=== PATIENT | female | born 1955 | race Caucasian/White ===

== ENCOUNTER 2019-10-11 04:38 | Inpatient (IN) | payer MEDICARE, MEDICAID, SELFPAY ==
[2019-10-11] VITALS (32 sets, daily range): BP systolic 78–144; BP diastolic 48–100; PULSE 84–108; RESP 18–37; TEMP 36.2–36.6; O2SAT 96–100; BMI 16.9
--- NOTE | 2019-10-11 | ECHO_ITS ---
Patient Info Name: Ana Shen Age: 64 years : 1955 Gender: Female Ht: 63 in Wt: 95 lbs BSA: 1.37 m2 HR: 90 bpm BP: 109 / 59 mmHg Heart Rhythm: Sinus Rhythm Technical Quality: Good Exam Date: 10/11/2019 1:36 PM Exam Location: [facility] Pulmonary Exam Room: 213 Patient Status: Inpatient Admit Date: 10/11/2019 Staff Ordering Physician: Dakota Guevara MD General Foreman: Jacquie Tom RCS Attending Provider: Jimi Garcia MD Referring Physician: Ismael CHASE; Exam Type: CA echo doppler color flow Study Info Indications - copd sob on BI PAP Complete two-dimensional, color flow and Doppler transthoracic echocardiogram is performed. Summary 1. Left ventricular chamber dimension is normal. 2. Left ventricular systolic function is mildly reduced, estimated at 40-45%. 3. The anteroapical, apical, apical inferior wall segments are akinetic. 4. There is a small round apical clot noted diameter measures 0.6 cm. Thrombus appears to be chronic. 5. There is mild aortic valve sclerosis. 6. Regional wall motion abnormalities as described above are typical of infarction of these segments. Left Ventricle Left ventricular chamber dimension is normal. Left ventricular systolic function is mildly reduced, estimated at 40-45%. The anteroapical, apical, apical inferior wall segments are akinetic. There is a small round apical clot noted diameter measures 0.6 cm. Thrombus appears to be chronic. Right Ventricle Right ventricular chamber dimension is normal. Left Atria Left atrial chamber dimension is normal. Right Atria Right atrial chamber dimension is normal. Aortic Valve The aortic valve is trileaflet. There is mild aortic valve sclerosis. Pulmonic Valve The pulmonic valve is not well visualized. Mitral Valve The mitral valve has normal leaflets. Tricuspid Valve The tricuspid valve leaflets are normal. Pericardium/Pleural The pericardium appears normal. Aorta The aortic root size at the sinus of Valsalva is normal. Left Ventricular Outflow Tract Name Value Normal LVOT 2D LVOT Diameter 2.0 cm LVOT Doppler LVOT Peak Gradient 3 mmHg LVOT Mean Gradient 2 mmHg LVOT VTI 16 cm LVOT VTI/AV VTI Ratio 0.9 LVOT Stroke Volume 51 ml LVOT CO 11.4 l/min LVOT CI 8.3 l/min/m2 Pulmonic Valve Name Value Normal PV Doppler PV Peak Gradient 2 mmHg Mitral Valve Name Value Normal MV Doppler
--- NOTE | ~2019-10-11 | CT_ITS ---
EXAMINATION: CTA chest PE protocol EXAM DATE: 10/11/2019 15:04 INDICATION: Elevated d-dimer. TECHNIQUE: Spiral CTA of the chest (pulmonary arteries) was performed with 100 cc Omnipaque 350 intr avenous contrast injection. Images were acquired during the pulmonary arterial phase. Coronal maxi mum intensity projection 3D-reconstructions were created by the technologist on dedicated workstation . Axial, coronal and sagittal reformatted images were reviewed. The dose-length product (DLP) for t his examination was 147.90 mGy-cm. The exposure was tailored according to patient size (auto mA exp osure control), and iterative reconstruction (ASIR) was used as additional dose reduction technique. Comparison is made to prior examination from 12/09/2018. FINDINGS: Pulmonary arteries are well opacified and without intraluminal filling defects. There is s evere emphysema and hyperinflation. The main, central pulmonary arteries are dilated which can indica te elevated pulmonary arterial pressure, pulmonary arterial hypertension. No thoracic aortic dissec tion. The lungs are clear. There are no pleural or pericardial effusions. Tracheobronchial tree is patent. There is no mediastinal, hilar or axillary lymphadenopathy. There is no pneumothorax. Heart normal in size. There is mild coronary arterial calcification, arterial sclerosis. Upper a bdomen is unremarkable. There is thoracic spondylosis without osteoblastic or osteolytic lesions id entified. Stimulator pack. IMPRESSION: 1. No pulmonary emboli. 2. Severe emphysema and hyperinflation. Reviewed, dictated and finalized at location B.
--- NOTE | ~2019-10-11 | XR_ITS ---
EXAMINATION: XR chest 1V portable DATE: 10/11/2019 05:56 INDICATION: Hypoxemia. Chronic obstructive pulmonary disease exacerbation. TECHNIQUE: A single frontal view of the chest was obtained on 2 radiographs. COMPARISON: Chest 2 views 05/28/2018, chest CT 12/09/2018 FINDINGS: The lungs are hyperexpanded with lucencies, consistent with emphysema. No pleural effusion or pneumothorax. The heart size is normal. IMPRESSION: 1. Severe emphysema. Reviewed, dictated and finalized at location A. IMPRESSION: 1. Severe emphysema.
--- NOTE | 2019-10-11 04:23 | ED.SOB ---
HPI - SOB/Dyspnea General Chief Complaint: Shortness of Breath/Dyspnea Stated Complaint: sob Source: patient and EMS Mode of arrival: EMS Limitations: no limitations History of Present Illness HPI Narrative: The patient is a 64-year-old female with a history of COPD, chronic respiratory failure on 3 L home oxygen who presents for evaluation of shortness of breath. Patient reportedly called EMS early this morning for worsening shortness of breath despite trying to use DuoNeb treatments at home. When EMS arrived to the patient's residence, she was hypoxemic, fatigued appearing. Patient was given a IV fluids, DuoNeb treatment, magnesium, Decadron, placed on CPAP and had very rapid turnaround in her dyspnea. Patient was transported to our facility on CPAP at 10/. At the time of my assessment, patient is awake, alert, with improved work of breathing. She is still tachypneic, with subtle expiratory wheezing, although aeration is poor bilaterally. Patient is denying any chest pain, reporting only worsening shortness of breath this morning. Patient denies history of previous intubation, states her last hospitalization was 2 years ago. Related Data Home Medications Medication Instructions Recorded Confirmed arformoterol 15 mcg/2 mL solution 2 ml INHALATION DAILY 03/23/19 09/07/19 for nebulization budesonide 0.25 mg/2 mL suspension 2 ml INHALATION BID 03/23/19 09/07/19 for nebulization ipratropium 0.5 mg-albuterol 3 mg 3 ml INHALATION QID PRN 03/23/19 09/07/19 (2.5 mg base)/3 mL nebulization soln ipratropium 20 mcg-albuterol 100 1 puff INHALATION QID 03/23/19 09/07/19 mcg/actuation mist for inhalation loperamide 2 mg capsule 2 mg PO Q4H PRN 03/23/19 09/07/19 pseudoephedrine-guaifenesin ER 60 1 tablet PO BID PRN 03/23/19 09/07/19 mg-600 mg tablet,extend release 12hr ipratropium-albuterol [Combivent INHALATION 10/11/19 Respimat] Allergies Allergy/AdvReac Type Severity Reaction Status Date / Time No Known Allergies Allergy Verified 10/11/19 04:47 Review of Systems Review of Systems: Narrative: CONSTITUTIONAL: Denies fever ENT: Denies rhinorrhea, congestion, sore throat, or otalgia. CARDIOVASCULAR: Denies chest pain RESPIRATORY: Reports cough and shortness of breath GASTROINTESTINAL: Denies abdominal pain MUSCULOSKELETAL: Denies back pain NEUROLOGIC: Denies headache [facility] Past Medical History Medical History Cervical cancer Chronic hypoxemic respiratory failure Fusion of lumbar spine History of tobacco abuse Pulmonary hypertension Shortness of Breath Social History Social History (Updated 10/11/19 @ 04:47 by Katalina Son MD) Smoking status: Current every day smoker Tobacco type: cigarettes Smoking end date: 02/25/16 Alcohol intake: never Exam Narrative: Exam Narrative: GENERAL: Awake, alert, cachectic HEAD: Normocephalic, atraumatic. EYES: PERRLA and EOMI. ENT: Nares clear, no rhinorrhea or epistaxis. Mucous membranes dry. NECK: Supple. CHEST: Severe respiratory distress, on CPAP, tachypneic, use of accessory muscles to breathe, poor aeration bilaterally HEART: Tachycardic rate, sinus rhythm ABDOMEN: Scaphoid, non distended, non tender EXTREMITIES: Normal range of motion. No edema. SKIN: Pale, warm, dry, no rash. NEURO:No focal deficits. Alert and oriented x3 Course Vital Signs Vital signs: Vital Signs Temperature 36.4 C 10/11/19 04:33 Pulse Rate 108 H 10/11/19 04:33 Respiratory Rate 36 H 10/11/19 04:33 Blood Pressure 144/69 H 10/11/19 04:33 Pulse Oximetry 100 10/11/19 04:33 Temperature 36.4 C 10/11/19 04:33 Pulse Rate 102 H 10/11/19 05:36 Respiratory Rate 20 10/11/19 05:29 Blood Pressure 130/100 H 10/11/19 05:29 Pulse Oximetry 100 10/11/19 05:29 MDM - SOB/Dyspnea MDM Narrative Medical decision making narrative: Patient presented for evaluation of shortness of breath via EMS.
--- NOTE | 2019-10-11 04:44 | ECG_ITS ---
Measurements Intervals [place] Rate: 107 P: 88 CO: 147 QRS: 150 QRSD: 88 T: 75 QT: 303 QTc: 405 Interpretive Statements SINUS TACHYCARDIA POSSIBLE LEFT ATRIAL ENLARGEMENT BORDERLINE R WAVE PROGRESSION, ANTERIOR LEADS ST ELEVATION IN ANTERIOR LEADS- CONSDER ACUTE INJURY BASELINE ARTIFACT- I, II, AVR, AVL, AVF, V1-V2, V4-V6 ABNORMAL ECG Electronically Signed On 10-11-2019 7:08:18 CDT by Bunny Davis D.O.
[2019-10-11] MEDS: methylPREDNISolone SOD SUCC 125 MG VIAL IV PUSH (04:51)
[2019-10-11 05:00] LABS: Base Excess ABG 1.8 mEq/l (+/-2.0); Carboxyhemoglobin 1.3 % THb (0-2.0); Fractional Inspired Oxygen 40 %; Methemoglobin ABG 0.4 %THb (0-1.5); Oxyhemoglobin 61.1 % THb (90.0-100.0); PCO2 ABG 57.4 mmHg (35.0-45.0); PO2 FiO2 Ratio Arterial Blood 0.95 %; Reduced Hemoglobin 37.2 %THb (0-5.0); Total Hemoglobin 12.9 g/dL (12.0-18.0); pH ABG 7.322 (7.350-7.450)
[2019-10-11 05:03] LABS: Oxygen Saturation ABG 66.6 % (95.0-100.0)
--- NOTE | 2019-10-11 05:03 | PC.NURSE ---
Patient's bedside glucose was 150.
[2019-10-11 05:04] LABS: Glucose Point of Care 150 (65-105)
[2019-10-11 05:05] LABS: Device NON-INVASIVE VENT; Site Drawn RIGHT BRACHIAL
[2019-10-11 05:06] LABS: Non-Invasive Expiratory Pressure 6 CMH2O; Non-Invasive Inspiratory Pressure 12 CMH2O; Non-Invasive Vent Rate 8 /MIN
--- NOTE | 2019-10-11 05:12 | PCRCNOTE ---
pt refused abg so ran venous sampledr cielo ochoa
[2019-10-11 05:16] LABS: Basophils Percent Auto 0.5 % (0.2-1.2); Eosinophils Absolute Auto 0.1 K/mm3 (0-0.3); Eosinophils Percent Auto 2.2 % (0-4.4); Hematocrit 36.1 % (37.0-47.0); Hemoglobin 11.9 g/dL (12.0-15.0); Immature Granulocyte Absolute 0.04 K/mm3 (0.00-0.031); Immature Granulocyte Percent A 0.7 % (0-0.5); Lymphocytes Absolute Auto 0.93 K/mm3 (0.9-3.2); Lymphocytes Percent Auto 16.8 % (18.3-44.2); Mean Corpuscular Hemoglobin 30.1 pg (26-34); Mean Corpuscular Volume 91.4 fl (80-100); Mean Platelet Volume 10.1 fl (7.4-10.4); Monocytes Absolute Auto 0.3 K/mm3 (0.1-0.6); Monocytes Percent Auto 4.7 % (2.6-8.5); Neutrophils Absolute Auto 4.2 K/mm3 (1.3-6.7); Neutrophils Percent Auto 75.1 % (45.5-73.1); Platelet Count Result 175 k/mm3 (150-375); Red Blood Count 3.95 M/mm3 (4.2-5.4); Red Cell Distribution Width 13.8 % (11.5-14.5); White Blood Count 5.5 K/mm3 (4.5-10.0)
[2019-10-11 05:26] LABS: Anion Gap 5 mmol/L (8-16); Blood Urea Nitrogen 12 mg/dL (7-17); Calcium 8.3 mg/dL (8.4-10.2); Carbon Dioxide 29 mmol/L (22-30); Chloride 102 mmol/L (98-107); Estimated Glomerular Filt Rate > 60; Glucose 162 mg/dL (65-105); Lactic Acid Reflex 1.5 mmol/L (0.7-2.1); Potassium 4.2 mmol/L (3.4-5.0); Sodium 136 mmol/L (137-145)
[2019-10-11] MEDS: IPRATROPIUM BR 0.02% INH SOLN 0.5 MG/2.5 ML VIAL INHALATION ×3 (06:25→20:07)
[2019-10-11] MEDS: ALBUTEROL SULFATE NEB 2.5 MG/0.5 ML INH 5 MG INHALATION ×3 (06:26→20:07)
--- NOTE | 2019-10-11 08:09 | ADMGEN ---
This patient, Ana Shen, was admitted to IMU Room 213-01 on 10-11-2019 at 0744. Patient/family oriented to hospital policies and general routines including ID bracelet, bed and alarms, visiting hours, pain management, procedures, bathroom and other care routines, personal items, smoking policy, room service/diet, and visiting hours. Valuables list has been completed. Information on how to activate the Rapid Response Team has been discussed. Patient/Family are encouraged to report perceived risks to care and to ask questions if they do not understand what they are told or what they should do.
--- NOTE | 2019-10-11 10:05 | PM.IMHP ---
H&P: HPI History of Present Illness Date/Time: 10/11/19 10:05 Chief complaint: Acute on chronic respiratory failure, COPD exacerb Narrative: Date of visit 929. Ana Shen is a 64 year old female with emphysematous COPD and chronic respiratory failure on 3-5 L nasal cannula who awoke this a.m. at approximately 4:00 a.m. more acutely short of breath. Contacted EMS did a breathing treatment without relief and was given steroids updrafts and transport to the hospital. Here she was more alert and no obvious precipitating factor found. She has had no productive cough fever chills or chest discomfort. She said she had a similar episode about 1 week ago early a.m. but by the time the ambulance arrived she did give herself a treatment was feeling somewhat better and did not come to the hospital. In the interim she has had no progression. She still smokes a few cigarettes a day and had been much heavier smoker in the past. last hospitalized here approximately 2 years ago and has done fairly well and generally uses some dry of updraft with her different inhalers approximately 3 hour intervals in very faithful in taking her medication Review of Systems Review of Systems: Narrative: constitutional appetite good weight is stable no fever no chills as stated Eye no double vision [place] mouth no pharyngitis laryngitis pulmonary as per present illness rare if any wheezing CV no chest pain palpitation or pedal edema GI no melena hematochezia diarrhea or constipation muscle skeletal no particular joint discomfort integument no skin breakdown rashes neuropsych alert pleasant cooperative no focal deficits PMFSH Past Medical History Medical History (Updated 10/11/19 @ 10:22 by Dakota Guevara MD) Cervical cancer Chronic hypoxemic respiratory failure Fusion of lumbar spine History of nephrolithiasis History of tobacco abuse Pulmonary hypertension Shortness of Breath Surgical History Surgical History (Updated 10/11/19 @ 10:17 by Dakota Guevara MD) S/P cervical spinal fusion C5 through C7 S/P lumbar fusion Status post colectomy with colostomy and subsequent reversal in 2011 for rectal cancer Status post hysterectomy Family History Family History (Updated 10/11/19 @ 10:18 by Dakota Guevara MD) Sibling Family history of lung cancer Suarez's sarcoma Hypertension Mother , diet in her 60s of cerebral aneurysm Cerebrovascular accident Hypertension Father , not sure exact age of demise was not close with her father Hypertension Heart disease Social History Social History (Updated 10/11/19 @ 10:19 by Dakota Guevara MD) Social History: lives with her son and does relate that she has had asbestos exposure in the past Smoking packs per day: 0.5 Smoking cigarettes per day: 10.0 Years smoked: 40 Smoking pack-years: 20.00 Smoking status: Current every day smoker Tobacco type: cigarettes Alcohol intake: never Substance use: never Spiritual care concerns: No Meds Home Medications and Allergies Home Medications Medication Instructions Recorded Confirmed Type arformoterol 15 mcg/2 mL solution 2 ml INHALATION DAILY 03/23/19 10/11/19 History for nebulization budesonide 0.25 mg/2 mL suspension 2 ml INHALATION BID 03/23/19 10/11/19 History for nebulization ipratropium 0.5 mg-albuterol 3 mg 3 ml INHALATION QID PRN 03/23/19 10/11/19 History (2.5 mg base)/3 mL nebulization soln loperamide 2 mg capsule 2 mg PO DIRECTED PRN 03/23/19 10/11/19 History guaifenesin 400 mg PO QID PRN 10/11/19 10/11/19 History ipratropium-albuterol [Combivent 1 puff INHALATION QID PRN 10/11/19 10/11/19 History Respimat] Allergies Allergy/AdvReac Type Severity Reaction Status Date / Time No Known Allergies Allergy Verified 10/11/19 08:18 Vital Signs Vital Signs - 24 hr 10/11/19 04:33 10/11/19 04:40 10/11/19 05:05 Temperature 36.4 C
[2019-10-11] MEDS: ENOXAPARIN 40 MG/0.4 ML SYRINGE SUB-Q (10:57)
[2019-10-11] MEDS: SODIUM CHLORIDE 0.9% IV 1,000 ML 100 ML IV CONT (10:57)
[2019-10-11 10:58] LABS: Alanine Aminotransferase 27 U/L (4-35); Albumin Level 3.7 g/dL (3.5-5.1); Alkaline Phosphatase 59 U/L (38-126); Aspartate Amino Transferase 36 U/L (14-36); Bilirubin,Total 0.4 mg/dL (0.2-1.3)
[2019-10-11 10:59] LABS: NT Pro B Type Natriuretic Pept 8310 PG/ML (5-100)
[2019-10-11 11:23] LABS: Alveolar/Arterial O2 Gradient 98.7 mmHg; Base Excess ABG 0.5 mEq/l (+/-2.0); Fractional Inspired Oxygen 40 %; HCO3 ABG 25.8 mEq/l (22.0-26.0); Oxygen Content ABG 17.5 %vol (16.0-22.0); Oxygen Saturation ABG 98.7 % (95.0-100.0); Oxyhemoglobin 97.4 % THb (90.0-100.0); PO2 ABG 135.9 mmHg (80.0-100.0); Total Hemoglobin 12.6 g/dL (12.0-18.0); pH ABG 7.386 (7.350-7.450)
[2019-10-11 11:25] LABS: Device BIPAP; Modified Allen's Test Pass; Site Drawn LEFT RADIAL
--- NOTE | 2019-10-11 11:25 | PCNSR ---
On 10/11/19, the student, Eric Stanton, provided care and [facility]. I have reviewed the student's documentation and agree with the findings.
[2019-10-11 11:26] LABS: Expiratory Pressure 6 cmH2O; Inspiratory Pressure 12 cmH2O
[2019-10-11] MEDS: LOPERAMIDE HCL 2 MG CAPSULE PO (12:09)
--- NOTE | 2019-10-11 12:24 | PM.CNPUL ---
Assessment and Plan Assessment and plan (1) Acute exacerbation of chronic obstructive airways disease: Code(s): J44.1 - Chronic obstructive pulmonary disease with (acute) exacerbation Status: Acute Assessment and Plan: She is having a COPD exacerbation, is at end stage of her disease process. She has increased shortness of breath, cough, sputum that has changed, is also increasing O2 due to shortness of breath, has been doing this a long time. Was seen in the office last month, not thriving. She has anxiety contributing to her overall distress. * Start Buspar 7.5 mg twice a day; she agreed to this * She is on maximum meds at home, has a specific schedule starting at 4:00 am that works for her, Brovana / budesonide at 4:00 am and other bronchodilators every 3 hours to have something to give all day long. * BNP is 8310, higher than expected. Echo is pending. She may have some cardiac dysfunction due to the pulmonary distress. No pulmonary edema on CXR. (2) Respiratory failure, [id number]: Qualifiers: Respiratory failure complication: hypoxia Qualified Code(s): J96.21 - Acute and chronic respiratory failure with hypoxia Code(s): J96.20 - Acute and chronic respiratory failure, unspecified whether with hypoxia or hypercapnia Status: Acute Assessment and Plan: She is on O2 at home for several years, uses more than needed. She does not have CO2 retention this visit; has had before. She was on BiPAP with adequate oxygenation and decreased work of breathing. (3) Pulmonary hypertension: Code(s): I27.20 - Pulmonary hypertension, unspecified Status: Acute Assessment and Plan: new echo is pending (4) Shortness of Breath: Code(s): R06.02 - Shortness of breath Status: Acute Assessment and Plan: worsening, due to progressive COPD and an exacerbation (5) Tobacco abuse: Code(s): Z72.0 - Tobacco use Status: Acute Assessment and Plan: Has 40 pack year history, quit a year ago, came with a pack of cigarettes. Her son still smokes; she is exposed to his smoke, she may not be smoking personally. Additional Plan She has end stage COPD, anxiety, will add Buspar, hold nebulized steroids while she is on systemic steroids. She is getting solumedrol 40 mg IV Q 8 hours. History of Present Illness History of Present Illness Consult date: 10/11/19 Requesting physician: Dakota Guevara MD Chief complaint: Acute on chronic respiratory failure, COPD exacerb Narrative: NEW: Thank you for the consult. Ana Shen is our clinic patient, 64 yo ap[pears much older than her age, admitted with increased shortness of breath, cough with development of green sputum which is normally white, worsening anxiety. She feels that she cannot take a deep enough breath in; she was in the office September 06 with similar issues, was in wheelchair, was not able to perform ADLs. She declined roflumilast (Daliresp) at a prior visit, and this may be a good add on medication now that she has had an admission for COPD. She is wearing 5 L/min with sat of 100%. Her home O2 amount at the last walk study was 1 L/min at rest, 3 L/min with exertion and sleep. She is having increased anxiety, feels that she is not enough getting enough O2, anxious, still smoking suspected as she has [place] pack here. Her son smokes outside so she has some exposure to second hand smoke. Denies fever, sore throat, exposure to anyone with COVID, no GI symptoms. She is on 4 different nebs at home - Brovana, budesonide, Duoneb, albuterol. Review of Systems Review of Systems: All systems re
[2019-10-11] MEDS: methylPREDNISolone SOD SUCC 40 MG VIAL IV PUSH ×2 (14:41→21:49)
[2019-10-11] MEDS: BUDESONIDE RESPULE NEB 0.5 MG/2 ML AMP 0.25 MG INHALATION (20:07)
[2019-10-11] MEDS: ENOXAPARIN 60 MG/0.6 ML SYRINGE 44 MG SUB-Q (21:49)
[2019-10-11] MEDS: busPIRone HCL 2.5 MG, busPIRone HCL 5 MG 7.5 MG PO (21:50)
[2019-10-12] VITALS (30 sets, daily range): BP systolic 88–116; BP diastolic 47–71; PULSE 78–104; RESP 19–37; TEMP 35.7–36.5; O2SAT 93–100
[2019-10-12] MEDS: ALBUTEROL SULFATE NEB 2.5 MG/0.5 ML INH 5 MG INHALATION ×4 (01:46→19:24)
[2019-10-12] MEDS: IPRATROPIUM BR 0.02% INH SOLN 0.5 MG/2.5 ML VIAL INHALATION ×4 (01:46→19:24)
[2019-10-12 05:40] LABS: Albumin Level 3.3 g/dL (3.5-5.1); Anion Gap 3 mmol/L (8-16); Blood Urea Nitrogen 17 mg/dL (7-17); Calcium 8.2 mg/dL (8.4-10.2); Carbon Dioxide 29 mmol/L (22-30); Chloride 102 mmol/L (98-107); Estimated CRCL calculation 48 ml/min; Estimated Glomerular Filt Rate > 60; Glucose 128 mg/dL (65-105); Phosphorus 3.7 mg/dL (2.5-4.5); Potassium 4.4 mmol/L (3.4-5.0); Sodium 134 mmol/L (137-145)
[2019-10-12] MEDS: methylPREDNISolone SOD SUCC 40 MG VIAL IV PUSH ×3 (06:53→21:06)
[2019-10-12] MEDS: BUDESONIDE RESPULE NEB 0.5 MG/2 ML AMP 0.25 MG INHALATION (08:38)
[2019-10-12] MEDS: busPIRone HCL 2.5 MG, busPIRone HCL 5 MG 7.5 MG PO ×2 (09:45→21:06)
[2019-10-12] MEDS: ENOXAPARIN 60 MG/0.6 ML SYRINGE 44 MG SUB-Q ×2 (09:46→21:07)
--- NOTE | 2019-10-12 12:12 | PM.PNPUL ---
Progress Note: A&P Assessment and Plan (1) Chronic hypoxemic respiratory failure: Code(s): J96.11 - Chronic respiratory failure with hypoxia Status: Acute (2) Acute exacerbation of chronic obstructive airways disease: Code(s): J44.1 - Chronic obstructive pulmonary disease with (acute) exacerbation Status: Acute Assessment and Plan: - increase pulmicort to 0.5 mg bid - agree with methylprednisolone 40 mg Q8h - Albuterol 2.5/Atrovent 0.5 mg Q6h scheduled - Recommend Cardiology Consult for abnormal wall motion function on Echo. ACS if present may be causing COPD exacerbation. - agree with no antibiotics at the moment. No signs acute bronchitis or pneumonia - Will need Trilogy NIV as outpatient. Time Spent With Patient Time with patient: 15 - 25 minutes Subjective Date/time seen: 10/12/19 12:12 Interval history: Feeling slightly better. Severe COPD. She's on Brovana/Ipratropium with PRN Albuterol Nebs. She's not on any pulmicort. Her Echo showed significant wall motion abnormalities with EF of 40-45%. No evidence of pneumonia. Sputum is the same and unchanged from home. No other infectious symptoms. Review of Systems Review of Systems: All systems reviewed & are unremarkable except as noted in HPI and below Exam Const: General: no acute distress and uncomfortable Other: some use of accessory muscles Neck: Neck: supple and no JVD Resp: Auscultation: no crackles, no rales, no rhonchi, no wheezes and diminished lung sounds Other: some use of accessory muscles Cardio: Rate: regular rate Rhythm: regular rhythm Heart sounds: no murmurs GI: Auscultation: normal bowel sounds Skin: General skin exam: normal color and no rashes or lesions noted Neuro: General: gait normal Speech: normal speech Extrem: General: normal to inspection, no edema and no pedal edema Psych: Mental Status: mental status grossly normal Affect: normal affect Objective Data Vital Signs Vital Signs: Vital Signs - 24 hr 10/11/19 12:32 10/11/19 13:44 10/11/19 13:50 Temperature 36.3 C L Pulse Rate 94 84 98 Respiratory Rate 28 H 26 H 26 H Blood Pressure 109/59 L Pulse Oximetry 100 96 10/11/19 13:54 10/11/19 14:00 10/11/19 16:00 Temperature Pulse Rate 84 90 88 Respiratory Rate 26 H Blood Pressure Pulse Oximetry 10/11/19 16:49 10/11/19 17:33 10/11/19 18:00 Temperature 36.2 C L Pulse Rate 86 102 H Respiratory Rate 18 Blood Pressure 78/48 L 95/67 L Pulse Oximetry 100 10/11/19 20:00 10/11/19 20:07 10/11/19 20:10 Temperature Pulse Rate 95 95 95 Respiratory Rate 25 H 25 H Blood Pressure Pulse Oximetry 98 10/11/19 20:20 10/11/19 20:45 10/11/19 22:00 Temperature 36.6 C Pulse Rate 95 104 H 101 H Respiratory Rate 27 H 26 H Blood Pressure 90/55 L Pulse Oximetry 99 10/11/19 23:43 10/12/19 00:00 10/12/19 01:46 Temperature 36.4 C Pulse Rate 87 88 82 Respiratory Rate 19 22 H 19 Blood Pressure 88/47 L Pulse Oximetry 99 99 10/12/19 01:52 10/12/19 01:56 10/12/19 02:00 Temperature Pulse Rate 84 78 81 Respiratory Rate 22 H 19 Blood Pressure Pulse Oximetry 93 10/12/19 04:00 10/12/19 06:00 10/12/19 08:25 Temperature 36.4 C 35.7 C L Pulse Rate 84 78 80 Respiratory Rate 22 H 32 H Blood Pressure 96/60 L 116/71 Pulse Oximetry 99 99 10/12/19 08:40 10/12/19 08:50 Temperature Pulse Rate 83 84 Respiratory Rate 20 20 Blood Pressure Pulse Oximetry 93 Intake/Output Intake/Output: Intake & Output 10/09/19 10/10/19 10/11/19 10/12/19 23:59 23:59 23:59 23:59 Intake Total 667 573 Output Total 700 400 Balance -33 173 Meds/Results Medications: Active Medications Generic Name Dose Route Start Last Admin Trade Name Freq PRN Reason Stop Dose Admin Acetaminophen 650 mg 10/11/19 06:10 Tylenol Tablet PO Q4H PRN Mild Pain (1-3) or Fever Albuterol 5 mg 10/11/19 08:00 10/12/19 08:38
[2019-10-12] MEDS: LOPERAMIDE HCL 2 MG CAPSULE PO (13:34)
--- NOTE | 2019-10-12 18:27 | PM.IMPN ---
Progress Note: A&P Assessment and Plan (1) Respiratory failure, [id number]: Qualifiers: Respiratory failure complication: hypoxia Qualified Code(s): J96.21 - Acute and chronic respiratory failure with hypoxia Code(s): J96.20 - Acute and chronic respiratory failure, unspecified whether with hypoxia or hypercapnia Status: Acute Assessment and Plan: Patient with an abrupt onset acute on chronic respiratory failure with hypoxia and hypercapnia. Does not appear to be in congestive failure but BNP 8300 and Echo showing EF 40% with LV dysfunction. D-dimer is elevated but could be related to the apical clot. CTA showing no PE but severe emphysema. She does have some dysphagia symptoms so also consider aspiration. Could also just be simply progression of her COPD toward end-stage. She states that she has been struggling with this for awhile and is tired. Hospice as an option was discussed. Consider trial of Lasix if she does not iimprove with current care. (2) Apical mural thrombus: Code(s): I51.3 - Intracardiac thrombosis, not elsewhere classified Status: Acute Assessment and Plan: Echo showing small round apical clot that appears to be chronic. Lovenox full dose started. Cardiology consult. (3) LV dysfunction: Code(s): I51.9 - Heart disease, unspecified Status: Acute Assessment and Plan: LV systolic function at 40-45% with anteroapical, apical, apical inferior wall segments that are akinetic. Would like to start BB and ACEI but BP soft yesterday bit improved today. Also, she is just now recovering from her respiratory failure. (4) Acute exacerbation of chronic obstructive airways disease: Code(s): J44.1 - Chronic obstructive pulmonary disease with (acute) exacerbation Status: Acute Assessment and Plan: Patient has severe emphysematous COPD with exacerbation. Continue updrafts and steroids. Continue inhalers. Add prn Albuterol. Appreciate pulmonary input. (5) Tobacco abuse: Code(s): Z72.0 - Tobacco use Status: Acute Assessment and Plan: Patient continues to smoke. Smoking cessation is imparative. (6) DVT prophylaxis: Code(s): Z29.9 - Encounter for prophylactic measures, unspecified Status: Acute Assessment and Plan: Lovenox (7) Anxiety: Code(s): F41.9 - Anxiety disorder, unspecified Status: Acute Assessment and Plan: [facility]. Ativan available but this may have precipitated the drop in the BP yesterday. Buspar added. Decrease Ativan dose. Subjective Date/time seen: 10/12/19 18:27 Interval history: 64yo female with severe COPD and chronic respiratory failure on 3-5L here for exacerbation. Patient did sleep well last night. She did tolerate the BiPAP last night. She has been eating okay without nausea or vomiting. She does complain of some mild dysphagia over the past year. This is not worsen. It is more food sticking sensation. She has had multiple CT scans in the past and was told that she has some underlying heart disease but has never had heart catheterization or stress test. No chest pain. Patient talks about not wanting to contiue and states she is having trouble at home even with mild exertion. Hospice was discussed and she will talk with her family. Complains of feeling anxious at times but does not have medciation at home for this Exam Narrative: Exam Narrative: AF 97.5 106/69 102 37 100% 5L Gen - thin female who is tachypneic at times Chest - distatn BS CV - tachycardic, regular; Tele showing occas sinus tachycardia Abd - soft, ND, +BS, guards with exam Ext - no pedal edema Psych - very anxious Skin - warm and dry Objective Data Vital Signs Vital Signs: Vital Signs - 24 hr 10/11/19 20:00 10/11/19 20:07 10/11/19 20:10 Temperature Pu
[2019-10-12] MEDS: BUDESONIDE RESPULE NEB 0.5 MG/2 ML AMP INHALATION (19:24)
[2019-10-13] VITALS (23 sets, daily range): BP systolic 102–115; BP diastolic 51–79; PULSE 73–115; RESP 18–30; TEMP 36.4–37.1; O2SAT 94–100
[2019-10-13] MEDS: ALBUTEROL SULFATE NEB 2.5 MG/0.5 ML INH 5 MG INHALATION ×4 (01:11→20:49)
[2019-10-13] MEDS: IPRATROPIUM BR 0.02% INH SOLN 0.5 MG/2.5 ML VIAL INHALATION ×4 (01:11→20:49)
[2019-10-13 04:51] LABS: Hematocrit 31.4 % (37.0-47.0); Hemoglobin 10.2 g/dL (12.0-15.0); Mean Corpuscular HGB Conc 32.5 g/dl (32-36); Mean Corpuscular Hemoglobin 29.8 pg (26-34); Mean Corpuscular Volume 91.8 fl (80-100); Mean Platelet Volume 10.4 fl (7.4-10.4); Platelet Count Result 198 k/mm3 (150-375); Red Blood Count 3.42 M/mm3 (4.2-5.4); Red Cell Distribution Width 13.8 % (11.5-14.5); White Blood Count 5.4 K/mm3 (4.5-10.0)
[2019-10-13 05:07] LABS: Anion Gap 3 mmol/L (8-16); Blood Urea Nitrogen 20 mg/dL (7-17); Calcium 8.1 mg/dL (8.4-10.2); Carbon Dioxide 31 mmol/L (22-30); Chloride 102 mmol/L (98-107); Cholesterol 144 mg/dL (0-200); Estimated CRCL calculation 48 ml/min; Estimated Glomerular Filt Rate > 60; Glucose 166 mg/dL (65-105); HDL Direct 55 mg/dL; Potassium 4.4 mmol/L (3.4-5.0); Sodium 136 mmol/L (137-145); Triglycerides 81 mg/dL (<150)
[2019-10-13 05:17] LABS: LDL Cholesterol Direct 74 mg/dL
[2019-10-13] MEDS: methylPREDNISolone SOD SUCC 40 MG VIAL IV PUSH ×3 (05:22→23:28)
[2019-10-13] MEDS: BUDESONIDE RESPULE NEB 0.5 MG/2 ML AMP INHALATION ×2 (08:01→20:49)
[2019-10-13] MEDS: busPIRone HCL 2.5 MG, busPIRone HCL 5 MG 7.5 MG PO ×2 (08:36→23:28)
[2019-10-13] MEDS: LOPERAMIDE HCL 2 MG CAPSULE PO (08:36)
[2019-10-13] MEDS: ENOXAPARIN 60 MG/0.6 ML SYRINGE 44 MG SUB-Q ×2 (10:56→23:28)
--- NOTE | 2019-10-13 12:39 | PM.IMPN ---
Progress Note: A&P Assessment and Plan (1) Respiratory failure, [id number]: Qualifiers: Respiratory failure complication: hypoxia Qualified Code(s): J96.21 - Acute and chronic respiratory failure with hypoxia Code(s): J96.20 - Acute and chronic respiratory failure, unspecified whether with hypoxia or hypercapnia Status: Acute Assessment and Plan: Patient with an abrupt onset acute on chronic respiratory failure with hypoxia and hypercapnia. Does not appear to be in congestive failure but BNP 8300 and Echo showing EF 40% with LV dysfunction. D-dimer is elevated but could be related to the apical clot. CTA showing no PE but severe emphysema. She does have some dysphagia symptoms but speech therapy assessment okay so diet continued. Could also just be simply progression of her COPD toward end-stage. She states that she has been struggling with this for awhile and is tired. We discussed Hospice yesterday and she feels she wants to go home with hospice. Will have Case mngmt make arrangements. (2) Acute exacerbation of chronic obstructive airways disease: Code(s): J44.1 - Chronic obstructive pulmonary disease with (acute) exacerbation Status: Acute Assessment and Plan: Patient has severe emphysematous COPD with exacerbation. Continue updrafts and steroids. Continue inhalers. Appreciate pulmonary input. (3) Apical mural thrombus: Code(s): I51.3 - Intracardiac thrombosis, not elsewhere classified Status: Acute Assessment and Plan: Echo showing small round apical clot that appears to be chronic. Lovenox full dose started. Cardiology consulted. (4) LV dysfunction: Code(s): I51.9 - Heart disease, unspecified Status: Acute Assessment and Plan: LV systolic function at 40-45% with anteroapical, apical, apical inferior wall segments that are akinetic. Would like to start BB and ACEI but BP soft. Also, she is just now recovering from her respiratory failure. (5) Tobacco abuse: Code(s): Z72.0 - Tobacco use Status: Acute Assessment and Plan: Patient continues to smoke. Smoking cessation is imparative. (6) Anxiety: Code(s): F41.9 - Anxiety disorder, unspecified Status: Acute Assessment and Plan: Patient with severe anxiety which is worsening her respiratory status. Ativan available but this may have precipitated the drop in the BP. She appears more comfortable on BiPAP. Continue Buspar. Decrease Ativan dose. (7) DVT prophylaxis: Code(s): Z29.9 - Encounter for prophylactic measures, unspecified Status: Acute Assessment and Plan: Baltazarx Subjective Date/time seen: 10/13/19 12:39 Interval history: 64yo female with severe COPD and chronic respiratory failure on 3-5L here for COPD exacerbation. Patient slept well and tolerated the BiPAP last night. Speech therapy felt patietn could swallow safely. Trilogy has been approved. She denies CP. She was only off the BiPAP for about 1 hour to eat but otherwise has had the BiPAP on most of the day. She still feels very anxious. Exam Narrative: Exam Narrative: AF 97.5 111/63 81 18 100% bipap Gen - appears comfortable with BiPAP in place Chest - very distant BS, no wheezing CV -RRR with distant S1/S2; Tele showing no significan dysrhythmias Abd - soft, ND, +BS Ext - no pedal edema Psych - less anxious Skin - warm and dry; minimal SQ fat Objective Data Vital Signs Vital Signs: Vital Signs - 24 hr 10/12/19 13:16 10/12/19 13:30 10/12/19 13:55 Temperature 96.4 F L Pulse Rate 98 80 85 Respiratory Rate 28 H 21 H 20 Blood Pressure 115/68 Pulse Oximetry 100 94 10/12/19 14:00 10/12/19 14:08 10/12/19 16:00 Temperature Pulse Rate 99 82 101 H Respiratory Rate 20 Blood Pressure Pulse Oximetry 10/12/19 17:10 10/12/19 18:00 10/12/19 19:22 Temperature 97.5 F L
--- NOTE | 2019-10-13 22:37 | PM.PNPUL ---
Progress Note: A&P Assessment and Plan (1) Chronic hypoxemic respiratory failure: Code(s): J96.11 - Chronic respiratory failure with hypoxia Status: Acute (2) Acute exacerbation of chronic obstructive airways disease: Code(s): J44.1 - Chronic obstructive pulmonary disease with (acute) exacerbation Status: Acute Assessment and Plan: Trilogy has been setup for her at home. Continue home nebulizer and add pulmicort 0.5 mg bid Nebulized on discharge. Will sign off. Please call us with any questions. Subjective Date/time seen: 10/13/19 22:37 Interval history: Still very short of breath, going on and off BIPAP. Patient has decided to go to hospice tomorrow. Review of Systems Review of Systems: All systems reviewed & are unremarkable except as noted in HPI and below Exam Const: General: no acute distress and uncomfortable Other: some use of accessory muscles Neck: Neck: supple and no JVD Resp: Auscultation: no crackles, no rales, no rhonchi, no wheezes and diminished lung sounds Other: some use of accessory muscles Cardio: Rate: regular rate Rhythm: regular rhythm Heart sounds: no murmurs GI: Auscultation: normal bowel sounds Skin: General skin exam: normal color and no rashes or lesions noted Neuro: General: gait normal Speech: normal speech Extrem: General: normal to inspection, no edema and no pedal edema Psych: Mental Status: mental status grossly normal Affect: normal affect Objective Data Vital Signs Vital Signs: Vital Signs - 24 hr 10/12/19 23:16 10/12/19 23:39 10/13/19 00:00 Temperature 36.5 C Pulse Rate 85 88 79 Respiratory Rate 19 24 H Blood Pressure 111/70 Pulse Oximetry 98 99 10/13/19 01:14 10/13/19 01:20 10/13/19 01:47 Temperature Pulse Rate 87 82 94 Respiratory Rate 24 H 23 H Blood Pressure Pulse Oximetry 10/13/19 04:00 10/13/19 05:48 10/13/19 08:00 Temperature 36.5 C 36.4 C L Pulse Rate 89 78 74 Respiratory Rate 24 H 25 H Blood Pressure 102/51 L 114/70 Pulse Oximetry 99 100 10/13/19 08:02 10/13/19 08:14 10/13/19 08:15 Temperature Pulse Rate 73 75 74 Respiratory Rate 21 H 21 H 21 H Blood Pressure Pulse Oximetry 98 10/13/19 10:00 10/13/19 12:00 10/13/19 13:40 Temperature 36.4 C L Pulse Rate 96 80 76 Respiratory Rate 18 20 Blood Pressure 111/63 Pulse Oximetry 100 10/13/19 13:48 10/13/19 14:00 10/13/19 16:00 Temperature 36.4 C Pulse Rate 76 115 H 109 H Respiratory Rate 20 22 H Blood Pressure 115/79 Pulse Oximetry 100 10/13/19 18:00 10/13/19 19:02 10/13/19 20:53 Temperature 37.1 C Pulse Rate 104 H 102 H 96 Respiratory Rate 24 H 30 H Blood Pressure 110/65 Pulse Oximetry 94 99 10/13/19 20:55 Temperature Pulse Rate 96 Respiratory Rate 30 H Blood Pressure Pulse Oximetry Intake/Output Intake/Output: Intake & Output 10/10/19 10/11/19 10/12/19 10/13/19 23:59 23:59 23:59 23:59 Intake Total 667 1839 1310 Output Total 700 1100 1200 Balance -33 739 110 Meds/Results Medications: Active Medications Generic Name Dose Route Start Last Admin Trade Name Freq PRN Reason Stop Dose Admin Acetaminophen 650 mg 10/11/19 06:10 Tylenol Tablet PO Q4H PRN Mild Pain (1-3) or Fever Albuterol 5 mg 10/11/19 08:00 10/13/19 20:49 Albuterol Sulf Neb 2.5mg/0.5ml INHALATION 5 mg Q6HRT FIDEL Administration Albuterol 2.5 mg 10/12/19 22:49 Albuterol Sulf Neb 2.5mg/0.5ml INHALATION Q6HRT PRN Shortness Of Breath Budesonide 0.5 mg 10/12/19 20:00 10/13/19 20:49 Pulmicort Respule Neb INHALATION 0.5 mg Q12HRT FIDEL Administration Buspirone HCl 2.5 mg/ 7.5 mg 10/11/19 21:00 10/13/19 08:36 Buspirone HCl 5 mg PO 7.5 mg Q12HR FIDEL Administration Enoxaparin Sodium 44 mg 10/11/19 23:00 10/13/19 10:56 Lovenox SUB-Q 44 mg Q12H FIDEL Administration Guaifenesin 400 mg 10/11/19 10:06 PO QID PRN
[2019-10-14] VITALS (13 sets, daily range): BP systolic 93–124; BP diastolic 53–78; PULSE 79–109; RESP 19–30; TEMP 36.2–37.1; O2SAT 98–100
[2019-10-14] MEDS: ALBUTEROL SULFATE NEB 2.5 MG/0.5 ML INH 5 MG INHALATION ×3 (02:28→13:12)
[2019-10-14] MEDS: IPRATROPIUM BR 0.02% INH SOLN 0.5 MG/2.5 ML VIAL INHALATION ×3 (02:28→13:12)
[2019-10-14] MEDS: BUDESONIDE RESPULE NEB 0.5 MG/2 ML AMP INHALATION (07:19)
[2019-10-14] MEDS: methylPREDNISolone SOD SUCC 40 MG VIAL IV PUSH ×2 (09:34→13:29)
[2019-10-14] MEDS: busPIRone HCL 2.5 MG, busPIRone HCL 5 MG 7.5 MG PO (09:34)
[2019-10-14] MEDS: LOPERAMIDE HCL 2 MG CAPSULE PO (09:36)
[2019-10-14] MEDS: ENOXAPARIN 60 MG/0.6 ML SYRINGE 44 MG SUB-Q (11:12)
--- NOTE | 2019-10-14 12:22 | PCNFU ---
Nutrition Follow-Up Complete: Inadequate oral intake related to poor appetite as evidenced by nursing report, BMI of 16.9, and weight loss of 2-13 lbs recorded by the RN Goal: Patient to consume 75% or more of meals Limited progress towards goal. We will continue current goal. Pt current nutrition is Regular. Nutrition recommendation:Agree Last recorded weight is 42.4 kg. Bowel Motility:+BM reported 10/11 Labs Reviewed:Na 136,BUN 20,Glu 166,Hct 31.4,Hgb 10.2 Meds Noted:Solu-Medrol,Lovenox,Ativan Additional Notes: Spoke with VASCULAR TECHNOLOGIST today for nutritional follow up. Plans to discharge with Hospice. She is not drinking diet supplements and eating bites of her meals 25-40% documented. Patient continues on Bipap and reports of anxiety. Would recommend to continue regular diet as ordered and encourage po intake. Monitoring: Follow up in 5 days
--- NOTE | 2019-10-14 15:39 | PM.DS ---
DS: Admitting Diagnosis Admitting Diagnosis Admitting Diagnosis: Acute on chronic respiratory failure, COPD exacerb DS: Discharge Diagnosis Discharge Diagnosis (1) Respiratory failure, [id number]: Qualifiers: Respiratory failure complication: hypoxia Qualified Code(s): J96.21 - Acute and chronic respiratory failure with hypoxia Code(s): J96.20 - Acute and chronic respiratory failure, unspecified whether with hypoxia or hypercapnia Status: Acute Assessment and Plan: Patient with an abrupt onset acute on chronic respiratory failure with hypoxia and hypercapnia. Does not appear to be in congestive failure but BNP 8300 and Echo showing EF 40% with LV dysfunction. D-dimer is elevated but could be related to the apical clot. CTA showing no PE but severe emphysema. She does have some dysphagia symptoms but speech therapy assessment okay so diet continued. Mostly felt related to progression of her COPD toward end-stage. She states that she has been struggling with this for awhile and is tired. We discussed Hospice and she decided she wants to go home with hospice. Arrangements made and she was discharge home with Hospice. PCP notified. We did arrange for her to have Trilogy at home. She was mostly BiPAP dependent here. (2) Acute exacerbation of chronic obstructive airways disease: Code(s): J44.1 - Chronic obstructive pulmonary disease with (acute) exacerbation Status: Acute Assessment and Plan: Patient has severe emphysematous COPD with exacerbation. Treated with updrafts, inhalers and steroids. Appreciate pulmonary input. (3) Apical mural thrombus: Code(s): I51.3 - Intracardiac thrombosis, not elsewhere classified Status: Acute Assessment and Plan: Echo showing small round apical clot that appears to be chronic. Lovenox full dose started. Cardiology was consulted but this was held given her desre to proceed with hospice care. . (4) LV dysfunction: Code(s): I51.9 - Heart disease, unspecified Status: Acute Assessment and Plan: LV systolic function at 40-45% with anteroapical, apical, apical inferior wall segments that are akinetic. Would like to start BB and ACEI but BP soft. Also, she is just now recovering from her respiratory failure. (5) Tobacco abuse: Code(s): Z72.0 - Tobacco use Status: Acute Assessment and Plan: Patient continues to smoke contributing to her exacerbation (6) Anxiety: Code(s): F41.9 - Anxiety disorder, unspecified Status: Acute Assessment and Plan: Patient with severe anxiety which is worsening her respiratory status. Ativan available but this may have precipitated the drop in the BP. She appears more comfortable on BiPAP. Continue Buspar. Decrease Ativan dose. DS: Summary Hospital Course Reason for hospitalization: 64yo female here for acute respiratory failure. Please see H&P for details Hospital Course: as above Time Spent with Patient Time attestation: Total time spent providing and/or coordinating discharge services:34 minutes Time spent: Greater than 30 minutes Exam Narrative: Exam Narrative: She feels chronically SOB and having hard time recovering from even mild exertion. No CP. [place] with the BiPAP AF 97.1 124/76 108 22 100% Gen - appears comfortable with BiPAP in place Chest - very distant BS, no wheezing CV -RRR with distant S1/S2 Abd - soft, scaphoid Ext - no pedal edema Psych - less anxious Skin - warm and dry; minimal SQ fat DS: Data Data Completed and Pending Labs on day of discharge: Preliminary micro results at discharge 10/11/19 05:03 Blood Culture - Preliminary Blood 10/11/19 05:03 Blood Culture - Preliminary Blood Discharge Plan Discharge Attending physician on discharge: Osorio Salazar Consulting providers: Jessica Watt ; Elysia Kennedy Discharging Clinician:
--- NOTE | 2019-10-14 15:58 | PCCCNOTE ---
Per Care Coordination: pt to discharge home with [facility]. [facility] will supply Bipap at her home. Fax discharge instructions to Mary at [phone].
== END 2019-10-14 17:45 | disposition hospice, home (50) | DRG 189 ==
LOC: ANHED 05:59 → ANHIMU 06:58
PROVIDERS: Admitting Provider Internal Medicine; Emergency Provider Emergency Medicine; PCP Physician Assistant; Visit Provider Internal Medicine
DX: J96.21 Acute and chronic respiratory failure with hypoxia (principal); J96.22 Acute and chronic respiratory failure with hypercapnia; I27.20 Pulmonary hypertension, unspecified; Z99.81 Dependence on supplemental oxygen; I51.3 Intracardiac thrombosis, not elsewhere classified; J43.9 Emphysema, unspecified; I51.9 Heart disease, unspecified; F17.210 Nicotine dependence, cigarettes, uncomplicated; F41.9 Anxiety disorder, unspecified; R13.10 Dysphagia, unspecified; Z77.090 Contact with and (suspected) exposure to asbestos; Z98.1 Arthrodesis status; Z85.41 Personal history of malignant neoplasm of cervix uteri; Z79.899 Other long term (current) drug therapy
CPT/HCPCS: 36415; 36600; 71045; 71275; 80048; 80061; 80069; 80076; 82375; 82805; 82948; 83050; 83605; 83880; 84443; 85025; 85027; 85380; 87040; 92610; 93005; 93306; 94002; 94003; 94640; 94660; 96374; 99291; A9270; G0378; J1650; J2060; J2920; J2930; J7030; Q9967